=== PATIENT | female | born 1950 | race Hispanic/Latino ===

== ENCOUNTER 2017-09-25 16:38 | Emergency (ER) | payer MEDICARE ==
[2017-09-25] MEDS ORDERED: KETOROLAC TROMETHAMINE 30MG/ML ONE (18:01)
[2017-09-25] MEDS ORDERED: CYCLOBENZAPRINE HCL 10 MG TABLET ONE (18:01)
== END 2017-09-25 18:25 | disposition home or self-care (01) ==
LOC: EDH 16:38
DX: R25.2 Cramp and spasm (principal); M79.604 Pain in right leg; E11.9 Type 2 diabetes mellitus without complications; E78.5 Hyperlipidemia, unspecified; I10 Essential (primary) hypertension; Z79.4 Long term (current) use of insulin
CPT/HCPCS: 93971; 96372; 99284; J1885

== ENCOUNTER 2023-02-13 08:11 | Day surgery (SDC) | payer OTHER, MEDICARE ==
[2023-02-11 16:03] LABS: BASOPHILS % (AUTO) 0.7 % (0.0-5.0); EOSINOPHILS % (AUTO) 2.8 % (0.0-8.0); HEMATOCRIT 37.7 % (36-48); LYMPHOCYTES % (AUTO) 33.6 % (21.0-51.0); MEAN CORPUSCULAR HEMOGLOBIN 30.4 pg (27.0-33.0); MEAN CORPUSCULAR HGB CONC 32.4 g/dL (32.0-36.0); MONOCYTES % (AUTO) 5.9 % (3.0-13.0); NEUTROPHILS % (AUTO) 56.8 % (40.0-77.0); PLATELET COUNT (AUTO) 208 K/uL (130-400); RED BLOOD CELL COUNT(AUTO) 4.01 MIL/uL (4.00-5.50); RED CELL DISTRIBUTION WIDTH 13.9 % (11.0-15.5); WHITE BLOOD COUNT (AUTO) 5.5 K/uL (4.8-10.8)
[2023-02-11 16:08] VITALS: BP 134/64; PULSE 64; RESP 16
[2023-02-11 16:16] LABS: CREATININE 0.8 mg/dL (0.5-1.5); POTASSIUM 3.2 mmol/L (3.5-5.1)
[2023-02-11 16:17] LABS: INR 0.93 (0.85-1.15); PROTHROMBIN TIME 10.3 SEC (9.6-11.6)
[2023-02-11 16:18] LABS: PARTIAL THROMBOPLASTIN TIME 29.4 SEC (26.3-35.5)
[~2023-02-13] VITALS: Ht 162.6 cm; Wt 103.8 kg
[2023-02-13] VITALS (12 sets, daily range): BP systolic 110–139; BP diastolic 50–78; PULSE 50–65; RESP 12–17
[~2023-02-13 08:11] MED LIST: 0.9%NACL 1000ML 1,000 ML IV SCH; BUPIVACAINE/PF 0.5% 30ML VIAL INJ ONE; CEFAZOLIN SODIUM 1 GM VIAL IVPB PRN; CEFAZOLIN SODIUM 2 GM VIAL IVPB ONE; CELE100C97 PO; HYDR12.54 PO; LOSA25TA41 PO; PRAV10TA39 PO; SEMA0.258 SQ
[2023-02-13] MEDS ORDERED: LIDOCAINE HCL 1% 20 ML VIAL INJ ONE (08:50)
[2023-02-13] MEDS ORDERED: BUPIVACAINE/PF 0.5% 30ML VIAL INJ ONE (08:50)
[2023-02-13] MEDS ORDERED: MIDAZOLAM HCL 1 MG/ML 2ML VIAL ONE ×2 (09:06→09:48)
[2023-02-13] MEDS ORDERED: BUPIVACAINE/PF 0.25% 30ML VIAL IJ ONE (09:06)
[2023-02-13] MEDS ORDERED: FENTANYL CITRATE PF 50 MCG/1 ML 2ML VIAL ONE (09:06)
[2023-02-13] MEDS ORDERED: BUPIVACAINE/PF 0.5% 30ML VIAL ONE (09:06)
[2023-02-13] MEDS ORDERED: LIDOCAINE HCL 1% 20 ML VIAL ONE (09:17)
[2023-02-13] MEDS ORDERED: ONDANSETRON 4MG INJ ONE (09:30)
[2023-02-13] MEDS ORDERED: CEFAZOLIN SODIUM 2 GM VIAL IVPB ONE (09:41)
== END 2023-02-13 11:20 | disposition home or self-care (01) ==
LOC: DAH 08:11
PROVIDERS: ATTEND Surgery
DX: D17.22 Benign lipomatous neoplasm of skin and subcutaneous tissue of left arm (principal); E11.9 Type 2 diabetes mellitus without complications; E66.9 Obesity, unspecified; Z20.822 Contact with and (suspected) exposure to COVID-19; Z79.899 Other long term (current) drug therapy; Z98.51 Tubal ligation status; Z90.49 Acquired absence of other specified parts of digestive tract; Z98.890 Other specified postprocedural states; Z68.39 Body mass index [BMI] 39.0-39.9, adult
CPT/HCPCS: 80048; 85025; 85610; 85730; 87426; 36415; 93005; 25071; 82948; 88304; A6260; A4663; A4452; J3010; J0690 ×2; J7030; J3490 ×3; J2250 ×2; J2405; A4215; A4223; A4222; A4221